=== PATIENT | male | born 1965 | race Caucasian/White ===

== ENCOUNTER 2018-11-22 11:47 | Emergency (ER) | payer OTHER ==
[2018-11-22] MEDS: DEXAMETHASONE 10 MG/ML 1 ML INJ IM (14:13)
[2018-11-22] MEDS: KETOROLAC 30 MG INJ IM (14:14)
== END 2018-11-22 15:17 | disposition home or self-care (01) ==
LOC: FTE 11:47
DX: M54.5 Low back pain (principal)
CPT/HCPCS: 96372; 99284-25